=== PATIENT | male | born 2000 | race Caucasian/White ===

== ENCOUNTER 2021-12-21 14:19 | Emergency (ER) | payer OTHER, BC, SELFPAY ==
[2021-12-21 14:25] VITALS: BP 161/98; PULSE 86; RESP 18; TEMP 36.7; O2SAT 98; BMI 30.2
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
--- NOTE | 2021-12-21 15:00 | PC.NURSE ---
PATIENT SENT TO ER PER Dwaine FUNK APRN FOR FURTHER EVALUATION. REPORT GIVEN TO Meeta MANCILLA RN
[2021-12-21 15:05] VITALS: BP 128/77; PULSE 72; RESP 18; TEMP 37; O2SAT 97; BMI 29.2
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
[2021-12-21 16:01] VITALS: BP 118/68; PULSE 79; RESP 14; O2SAT 96
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
[2021-12-21 16:31] VITALS: BP 121/61; PULSE 77; RESP 14; O2SAT 98
[2021-12-21 17:04] VITALS: BP 121/61; PULSE 77; RESP 14; TEMP 37; O2SAT 98
== END 2021-12-21 17:04 | disposition home or self-care (01) ==
LOC: UTC 14:38 → ER 15:01
PROVIDERS: Emergency Provider Emergency Medicine; PCP Family Medicine
DX: S06.0X0A Concussion without loss of consciousness, initial encounter (principal); S16.1XXA Strain of muscle, fascia and tendon at neck level, initial encounter; V49.49XA Driver injured in collision with other motor vehicles in traffic accident, initial encounter; Y92.488 Other paved roadways as the place of occurrence of the external cause
CPT/HCPCS: 70450; 72125; 99284

== ENCOUNTER 2021-12-30 17:19 | Emergency (ER) | payer BC, SELFPAY ==
[2021-12-30 17:20] VITALS: BP 148/92; PULSE 91; RESP 18; TEMP 36.8; O2SAT 99; BMI 28.8
[2021-12-30 17:40] LABS: UTC Influenza A Antigen Negative (Negative)
[2021-12-30 17:41] LABS: UTC Influenza B Antigen Negative (Negative)
--- NOTE | 2021-12-30 17:42 | HMH.EDUTC ---
[facility] [place]ression: Acute sinus infection Qualifiers: Sinusitis location: maxillary Recurrence: non-recurrent Qualified Code(s): J01.00 - Acute maxillary sinusitis, unspecified Disposition: Home, Self-Care Condition on Discharge: Good Instructions: DI for Sinusitis Additional Instructions: Start antibiotic patient to take as ordered for a full length of time even if you feel better. Sinus infections do not get better overnight. It may take 2-3 days to notice much improvement so be sure to use conservative measures as discussed for symptoms. Flonase 1 spray each nostril daily to help with nasal congestion, sinus and ear pressure/information Increase fluids Humidifier/vaporizer as needed Tylenol and ibuprofen as needed for fever or pain. If symptoms do not improve or get worse return or be seen in the ER Follow-up with primary care this week Prescriptions: Fluticasone Propionate [Flonase 50mcg nasal spray 16gm] 1 spr NS DAILY 14 Days #9.9 ml Transmission Status: Pending to [facility] Azithromycin [Zithromax 250mg tab] 250 mg PO DIRECTED #6 tab [facility] Referrals: Tristen Tsai MD [Primary Care Provider] - Time of Disposition: 17:45 Medical Decision Making - Gama Inquiry Pt receiving controlled substance: No Vital Signs: 12/30/21 17:20 Temperature 98.3 F Temperature Source Oral Pulse Rate [Right Brachial] 91 H Respiratory Rate 18 Blood Pressure [Right Arm] 148/92 H Blood Pressure Mean [Right Arm] 110 Blood Pressure Source [Right Arm] Automatic Cuff Blood Pressure Position [Right Arm] Sitting 02 Sat by Pulse Oximetry 99 Oxygen Delivery Method Room Air - Lab Data Lab Results 12/30/21 17:26: Influenza Type A Ag Negative, Influenza Type B Ag Negative [facility] [place] - General Chief complaint: Urgent Treatment Center Stated complaint: SOA,AVITIA, ocng,cough Time Seen by Provider: 12/30/21 17:42 Mode of Arrival: Ambulatory Source of Information: Patient Limitations: No Limitations Description of Symptoms (Recalled from Triage Doc. by RN): PATIENT C/O DIFFICULTY BREATHING, COUGH, CONGESITON, HEADACHE AND FATIGUE X 3 DAYS. EXPOSED TO FLU HEENT Symptoms (Recalled from RN notes): Yes Resp Symptoms (Recalled from RN notes): Yes Skin Symptoms (Recalled from RN notes): No MS Symptoms (Recalled from RN notes): No Functional Status (Recalled from RN notes): WNL - History of Present Illness Provider Complaint: 21 yr old male presents for cough, sinus pressure,sinus congestion, green drainage,fever, and sore throat since tues - Related Data Previous Rx's Medication Instructions Recorded Azithromycin [Zithromax 250mg 250 mg PO DIRECTED #6 tab 12/30/21 tab] Fluticasone Propionate [Flonase 1 spr NS DAILY 14 Days #9.9 ml 12/30/21 50mcg nasal spray 16gm] Allergies Allergy/AdvReac Type Severity Reaction Status Date / Time No Known Allergies Allergy Verified 05/17/20 14:42 - Worker's Comp Is this a Worker's Comp case?: No [facility] History - Hepatitis A Screen Drug use history?: No High risk sexual behaviors?: No History of sexually transmitted infection?: No Currently employed?: No Childcare worker?: No Do you have indoor plumbing?: Yes Do you have electricity?: Yes Attestation statement:: This patient has been screened for Hepatitis A risk factors. 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 Housing: house Household Members: family Family Hx:: Diabetes ROS Obtained: Yes Systems reviewed as appropriate & no additional complaints - Constitutional Constitutional: Reports system reviewed and no additi
[2021-12-30 17:46] VITALS: BP 148/92; PULSE 91; RESP 18; TEMP 36.8; O2SAT 99
== END 2021-12-30 17:49 | disposition home or self-care (01) ==
PROVIDERS: Emergency Provider Nurse Practitioner Family; PCP Family Medicine
DX: I47.1 Supraventricular tachycardia; F07.81 Postconcussional syndrome; Z79.51 Long term (current) use of inhaled steroids; Z87.898 Personal history of other specified conditions; Z86.14 Personal history of Methicillin resistant Staphylococcus aureus infection
CPT/HCPCS: 87804; 99213; G0463

== ENCOUNTER 2024-01-16 18:00 | Outpatient (CLI) | payer BC, SELFPAY ==
[2024-01-16 18:11] LABS: Basophils # 0.1 K/mm3 (0-0.2); Eosinophils # 0.2 K/mm3 (0.0-0.4); Eosinophils % 4.2 % (0.1-12.0); Hematocrit 50.2 % (42.0-52.0); Hemoglobin 16.4 g/dL (14.1-18.0); Lymphocytes # 1.6 K/mm3 (0.7-4.5); Lymphocytes % 30.5 % (10-50); Mean Corpuscular HGB Conc 32.7 g/dL (31.8-35.4); Mean Corpuscular Hemoglobin 33.3 pg (27.0-31.2); Mean Corpuscular Volume 101.7 fl (80-94); Mean Platelet Volume 10.2 fl (7.4-10.4); Monocytes # 0.4 K/mm3 (0.1-1.0); Monocytes % 6.8 % (1.7-9.3); Neutrophils % 57.4 % (37.0-80.0); Platelet Count 207 K/mm3 (142-424); Red Blood Count 4.93 M/mm3 (4.60-6.20); Red Cell Distribution Width 13.5 % (11.5-17.5); White Blood Count 5.2 K/mm3 (4.8-10.8)
[2024-01-16 18:41] LABS: Alanine Aminotransferase 175 U/L (12-78); Albumin Level 4.7 g/dl (3.5-5.0); Albumin/Globulin Ratio 1.8 (1.1-1.8); Alkaline Phosphatase 57 U/L (38-126); Anion Gap 13.5 mEq/L (5-15); Aspartate Amino Transferase 108 U/L (17-59); Blood Urea Nitrogen 17 mg/dl (9-20); Carbon Dioxide 28 mmol/L (22.0-30.0); Chloride 104 mmol/L (98-107); Chol/HDL Ratio 7.7 (1-3.5); Cholesterol 247 mg/dl (140-200); Estimated Glomerular Filt Rate 93 ml/min (>60); GFR (African American) 113 ML/MIN (>60); Globulin 2.6 g/dL (1.3-3.2); Glucose 89 mg/dl (74-100); HDL Cholesterol 32 mg/dl (40-60); Potassium 4.5 mmoL/L (3.5-5.1); Sodium 141 mmol/L (136-145); Total Protein,Serum 7.3 g/dl (6.3-8.2); Triglycerides 178 mg/dl (30-150); VLDL Cholesterol 36 mg/dL (0-40)
[2024-01-16 18:49] LABS: Hemoglobin A1C 5.3 % (4.0-6.0)
[2024-01-16 18:52] LABS: Direct LDL Cholesterol 154.32 mg/dL (100-129)
[2024-01-16 19:02] LABS: 25-OH Vitamin D, Total 22.2 ng/mL (30-100)
[2024-01-16 19:15] LABS: Thyroid Stimulating Hormone 1.89 uIU/mL (0.465-4.68)
== END 2024-01-16 23:59 | disposition home or self-care (01) ==
LOC: LAB.DROPOF 01-18 10:35
PROVIDERS: PCP Student in an Organized Health Care Education/Training Program; Visit Provider Student in an Organized Health Care Education/Training Program
DX: K21.9 Gastro-esophageal reflux disease without esophagitis (principal); E66.9 Obesity, unspecified; Z83.3 Family history of diabetes mellitus; Z68.32 Body mass index [BMI] 32.0-32.9, adult
CPT/HCPCS: 80053; 80061; 82306; 83036; 84443; 85025

== ENCOUNTER 2024-01-23 07:24 | Outpatient (CLI) | payer BC, SELFPAY ==
--- NOTE | 2024-01-23 07:25 | US_ITS ---
FINAL REPORT CLINICAL HISTORY: elevated liver enzymes COMPARISON: None FINDINGS: Sonographic images of the right upper quadrant were obtained. The pancreas is obscured. Diffuse fatty infiltration of the liver is present. There is sludge present in the gallbladder without gallstones seen. There is no evidence of biliary ductal dilatation.The common duct measures 3 mm. Limited images of the right kidney are unremarkable. IMPRESSION: Fatty infiltration of the liver. Mild sludge present in the gallbladder without gallstones. Reviewed, Interpreted and Dictated by Sanya Donaldson MD Transcribed by Olive Hanson Authenticated and [facility]
== END 2024-01-23 23:59 | disposition home or self-care (01) ==
LOC: RAD 07:25
PROVIDERS: PCP Student in an Organized Health Care Education/Training Program; Visit Provider Student in an Organized Health Care Education/Training Program
DX: R74.8 Abnormal levels of other serum enzymes (principal)
CPT/HCPCS: 76705

== ENCOUNTER 2025-08-12 22:31 | Emergency (ER) | payer BC, SELFPAY ==
--- NOTE | 2025-08-12 23:37 | CT_ITS ---
PROCEDURE INFORMATION: Exam: CT Head Without Contrast Exam date and time: 08/12/2025 11:47 PM Age: 25 years old Clinical indication: Pain; Headache; Additional info: Severe AVITIA TECHNIQUE: Imaging protocol: Computed tomography of the head without contrast. Radiation optimization: All CT scans at this facility use at least one of these dose optimization techniques: automated exposure control; mA and/or kV adjustment per patient size (includes targeted exams where dose is matched to clinical indication); or iterative reconstruction. COMPARISON: CT HEAD/BRAIN WO CON 12/21/2021 3:26 PM FINDINGS: Brain: Normal. No hemorrhage. Unremarkable white matter. No mass effect. Cerebral ventricles: No ventriculomegaly. Paranasal sinuses: Mucous retention cyst left maxillary sinus and mild mucosal thickening of some of the ethmoids bilaterally. No fluid levels. Mastoid air cells: Visualized mastoid air cells are well aerated. Bones: See Paranasal sinuses finding. Soft tissues: Unremarkable. IMPRESSION: 1. Incidental mild paranasal sinus disease of uncertain acuity and may be chronic. 2. Otherwise stable noncontrast CT brain. No acute intracranial abnormality.
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
[2025-08-12 23:45] VITALS: BP 160/89; PULSE 95; RESP 18; TEMP 37.7; O2SAT 99; BMI 29.2
[2025-08-13] VITALS (8 sets, daily range): BP systolic 112–129; BP diastolic 57–77; PULSE 87–104; RESP 16; TEMP 37.2; O2SAT 92–98
[2025-08-13 00:14] LABS: Adenovirus,PCR Not Detected (NotDetected); Chlamydophila Pneumoniae, PCR Not Detected (NotDetected); Coronavirus 19, PCR Not Detected (NotDetected); Coronovirus HKU1,PCR Not Detected (NotDetected); Influenza A, PCR Not Detected (NotDetected); Influenza AH1, 2009 Not Detected (NotDetected); Influenza AH1, PCR Not Detected (NotDetected); Influenza AH3,PCR Not Detected (NotDetected); Influenza B, PCR Not Detected (NotDetected); Mycoplasma Pneumoniae, PCR Not Detected (NotDetected); Parainfluenza 1, PCR Not Detected (NotDetected); Parainfluenza 2, PCR Not Detected (NotDetected); Parainfluenza 3, PCR Not Detected (NotDetected); Parainfluenza 4, PCR Not Detected (NotDetected)
[2025-08-13] MEDS: LACTATED RINGERS 1000ML 1,000 ML 999 ML IV (00:40)
[2025-08-13] MEDS: KETOROLAC 30MG/ML VIAL 30 MG IV (00:42)
[2025-08-13] MEDS: MIDAZOLAM 2MG/2ML VIAL 1 MG IV (00:43)
[2025-08-13] MEDS: PROCHLORPERAZINE 10MG/2ML VIAL 5 MG IV (00:44)
[2025-08-13] MEDS: VANCOMYCIN CONSULT REQUEST 1 EACH NOTAPPLIC (00:49)
[2025-08-13 01:08] LABS: Hematocrit 46.8 % (42.0-52.0); Hemoglobin 16.3 g/dL (14.1-18.0); Immature Granulocytes % 0.3 %; Mean Corpuscular HGB Conc 34.8 g/dL (31.8-35.4); Mean Corpuscular Hemoglobin 32.9 pg (27.0-31.2); Mean Corpuscular Volume 94.5 fl (80-94); Nucleated Red Blood Cells % 0 %; Platelet Count 216 K/mm3 (142-424); Red Blood Count 4.95 M/mm3 (4.60-6.20); Red Cell Distribution Width-SD 41.9 fL; White Blood Count 9.9 K/mm3 (4.8-10.8)
[2025-08-13 01:25] LABS: Albumin Level 4.8 g/dl (3.5-5.0); Chloride 97 mmol/L (98-107); Potassium 3.8 mmoL/L (3.5-5.1); Sodium 135 mmol/L (136-145)
[2025-08-13 01:28] LABS: Alanine Aminotransferase 49 U/L (12-78); Albumin/Globulin Ratio 1.5 (1.1-1.8); Alkaline Phosphatase 58 U/L (38-126); Anion Gap 12.8 mEq/L (5-15); Aspartate Amino Transferase 38 U/L (17-59); Bilirubin,Total 0.7 mg/dl (0.2-1.3); Blood Urea Nitrogen 14 mg/dl (9-20); Carbon Dioxide 29 mmol/L (22.0-30.0); Creatinine Clearance Estimated 159 mL/min (50-200); Creatinine,Serum 1.10 mg/dl (0.66-1.25); Estimated Glomerular Filt Rate 82 ml/min (>60); GFR (African American) 100 ML/MIN (>60); Globulin 3.3 g/dL (1.3-3.2); Total Protein,Serum 8.1 g/dl (6.3-8.2)
[2025-08-13 01:29] LABS: Calcium 9.5 mg/dl (8.4-10.2); Glucose 109 mg/dl (74-100)
[2025-08-13] MEDS: PHARMACY CONSULT REQUEST 1 EACH NOTAPPLIC (01:59)
[2025-08-13 02:04] LABS: RBC Morphology Normal; Total Cells Counted 100
[2025-08-13] MEDS: ACYCLOVIR SODIUM 1,000 MG in 0.9 % SODIUM CHLORIDE 250 ML 250 MG IV (02:14)
[2025-08-13] MEDS: VANCOMYCIN HCL 2,000 MG in 0.9 % SODIUM CHLORIDE 250 ML 125 MG IV (02:33)
[2025-08-13 02:34] LABS: Hepatitis C Ab Qual. W/ RFX NEGATIVE (Negative)
[2025-08-13] MEDS: ONDANSETRON 4MG/2ML VIAL 4 MG IV (03:10)
[2025-08-13] MEDS: MORPHINE 4MG/ML SYRINGE 4 MG IV (03:11)
[2025-08-13 05:02] LABS: Reflex Lactic Add Lactic Reflex
== END 2025-08-13 03:45 | disposition short-term general hospital (02) ==
PROVIDERS: Emergency Provider Emergency Medicine; PCP Student in an Organized Health Care Education/Training Program
DX: R51.9 Headache, unspecified (principal); Z20.828 Contact with and (suspected) exposure to other viral communicable diseases
CPT/HCPCS: 62270; 0223U; 70450; 80053; 83605; 85007; 85025; 86803; 87040; 87389; 99285; J0133; J0696; J0780; J1200; J1885; J2250; J2270; J2405; J3373; J7050; J7120